=== PATIENT | male | born 1985 | race Caucasian/White ===

== ENCOUNTER 2017-10-02 18:26 | Emergency (ER) | payer BC, OTHER ==
[~2017-10-02] VITALS: Ht 195.6 cm; Wt 108.9 kg
--- OUTSIDE RECORDS SUMMARY | 2017-10-02 18:33 | XMS REPORT | Continuity of Care Document ---
Author Author [facility] Organization [facility] Address Unknown Phone Unavailable Allergies There is no data. Medications There is no data. Problems There is no data. Procedures There is no data. Results There is no data. Encounters ACCT No. Visit Date/Time Discharge Status Pt. Type Provider Facility Loc./Unit Complaint [id number] 08/17/2015 18:10:00 08/17/2015 19:35:00 DIS Emergency HANNA FALLON DO [facility] ER
[2017-10-02] MEDS ORDERED: LIDOCAINE 2% VISCOUS 15 ML UDC MM ONE (19:15)
--- NOTE | 2017-10-02 19:20 | ED GI ---
General Chief Complaint: Rect Problems Stated Complaint: HEMMORROID Nursing Triage Note: PT REPORTS HEMORROIDS STARTING ON MONDAY AND WORSENING THROUGHOUT THE WEEKEND. UNABLE TO GET IN TO DOCTOR TODAY AND UNABLE TO SIT, LAY COMFORTABLY. PT HAS HAD HISTORY OF HEMORROIDS WITH INTERVENTION. PT USED PROCTOFOAM AND LIDOCAINE WITH NO IMPROVEMENT. Sepsis Screen: No Definite Risk Source of Information: Patient Exam Limitations: No Limitations History of Present Illness Time Seen By Provider: 19:03 Initial Comments Patient presents with a 1-1/2 day history of pain at the rectum. He says a year ago he had a large hemorrhoid had to be removed in the ER. He tried ignoring it but couldn't sleep any last night so he decided to come in [facility]. 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 He does not have any problems with constipation or diarrhea or history of irritable bowel syndrome. He is not sure if his last hemorrhoid was internal or external. He is not noticing any bleeding but hasn't the past had some blood on wiping. Never had a colonoscopy. Allergies and Home Medications Allergies Coded Allergies: No Known Drug Allergies (Unverified , 10/02/17) Home Medications Hydrocortisone/Pramoxine 30 Gm Cream.appl, 1 APPLIC RC QID PRN for PAIN- MODERATE TO SEVERE, #1 Ref 0 Prescribed by: CHRISTINE CASAREZ on 10/02/171940 Review of Systems Constitutional: No chills, No fever, No malaise EENTM: No Blurred Vision, No Double Vision, No Eye Pain Respiratory: Denies Cough, Denies Shortness of Air Gastrointestinal: Denies Abdomen Distended, Denies Abdominal Pain, Denies Constipated, Denies Diarrhea, Denies Nausea, Denies Vomiting Genitourinary: Denies Burning, Denies Discharge Past Dqcfiac-Zkldpo-Iyxvcx Hx Patient Social History Alcohol Use: Denies Use Recreational Drug Use: No Smoking Status: Never a Smoker Recent Foreign Travel: No Contact w/Someone Who Travel: No Recent Infectious Disease Expo: No Physical Abuse: No Sexual Abuse: No Mistreated: No Fear: No Psychosocial Suicide Risk Score: 1 Physical Exam Vital Signs VS - Last 72 Hours, by Label 10/02/17 10/02/17 19:05 19:47 Pulse 89 89 Resp 18 18 B/P (MAP) 122/99 (107) Pulse Ox 98 98 O2 Delivery Room Air Room Air Capillary Refill : Less Than 3 Seconds General Appearance: WD/WN, no apparent distress HEENT: PERRL/EOMI, pharynx normal Neck: non-tender, full range of motion Respiratory: chest non-tender, lungs clear, normal breath sounds Cardiovascular: normal peripheral pulses, regular rate, rhythm Peripheral Pulses: 2+ Radial Pulses (R), 2+ Radial Pulses (L) Gastrointestinal: normal bowel sounds, non tender, soft Rectal: mass, tenderness, other (2 half by 3 cm round smooth pearlescent hemorrhoid on the 3:00 position with a smaller 1 cm hemorrhoid at 12:00 position that is erythematous and very tender and friable. Appears to be probably external but maybe a grade for internal prolapsed hemorrhoid. Not easily reduced.) Extremities: normal inspection, no calf tenderness, normal capillary refill Progress/Results/Core Measures Results/Orders My Orders Orders - CHRISTINE CASAREZ Lidocaine 2% Viscous 15 Ml (Xylocaine Vi (10/02/17 19:15) Vital Signs/I&O Vital Sign - Last 12Hours 10/02/17 10/02/17 19:05 19:47 Pulse 89 89 Resp 18 18 B/P (MAP) 122/99 (107) Pulse Ox 98 98 O2 Delivery Room Air Room Air Blood Pressure Mean: 107 Progress Note : Time: 19:38 Progress Note General surgery did a bedside incision and drainage and packing of the external hemorrhoid. The 12:00 thrombosed hemorrhoid is reproducible internal and no clot evacuated at this time. He recommends Analpram. Consults Consults : Consulting Physician: GIO THOMAS DO Consults Notes Called discussed the case and he says he will come and get some surgical kit And a scalpel available. Departure Impression Impression: Primary Impression: Hemorrhoids Qualified Codes: K64.3 - Fourth degree hemorrhoids Disposition: 01 HOME, SELF-CARE Condition: Improved Departure-Patient Inst. Decision time for Depature: 19:38 Referrals: CELINA ZELAYA MD (PCP/Family) Primary Care Physician Patient Instructions: Hemorrhoids (DC) Add. Discharge Instructions: Increase your dietary fiber. Use the Proctofoam and other iewy-xek-whpzqrb creams as necessary for the pain. You may also use sitz baths where you run some tepid water about 2 inches in the bathtub and NSAID in it and allow that to help with the pain. Tylenol 1000 mg every 8 hours and ibuprofen 800 mg every 8 hours is also reasonable. Use stool softener such as Colace or laxatives such as MiraLAX to try and prevent straining with stools in the future. Obtained the prescription for Analpram and apply a small amount rectally 4 times a day as needed for pain relief and to help shrink the external and internal hemorrhoids. Follow up Monday in 2 days with the general surgeon in his office. You may call ahead of time Dr. Thomas at [phone] if you need a specific appointment time. All discharge instructions reviewed with patient and/or family. Voiced understanding. Scripts Hydrocortisone/Pramoxine (Analpram Hc 2.5% Cream) 30 Gm Cream.appl 1 APPLIC RC QID Y for PAIN-MODERATE TO SEVERE, #1 EACH 0 Refills Prov: CHRISTINE CASAREZ 10/02/17 Copy Copies To 1: CELINA ZELAYA MD Copies To 2: GIO THOMAS DO CHRISTINE CASAREZ Oct 02, 2017 19:20
[2017-10-02] MEDS ORDERED: HC A30CR RC (19:41)
[2017-10-02 19:47] VITALS: BP 122/99
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
== END 2017-10-02 19:48 | disposition home or self-care (01) ==
LOC: EDUNIT# 18:26 → ER 18:30
DX: K64.4 Residual hemorrhoidal skin tags (principal); K64.8 Other hemorrhoids
CPT/HCPCS: 99282

== ENCOUNTER 2019-07-23 19:44 | Emergency (ER) | payer SELFPAY ==
[~2019-07-23] VITALS: Ht 190.5 cm; Wt 86.1 kg
[~2019-07-23 19:44] MED LIST: HC A30CR RC
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
--- NOTE | 2019-07-23 20:26 | Diagnostic Imaging Report ---
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 Exam: X-ray of the right hand, AP lateral views. Comparison: None. Findings and impression: 1: There is an oblique spiral-type fracture involving the proximal diaphysis extending all the way to the distal epiphysis of the 4th proximal phalanx. It is difficult to determine if the fracture extends into the articular surface. There is mild adjacent soft tissue swelling. 2: The remainder of the right hand shows no other significant abnormality. Dictated by: Dictated on workstation # [id number]
[2019-07-23 21:30] VITALS: BP 120/91
== END 2019-07-23 21:30 | disposition home or self-care (01) ==
LOC: EDUNIT# 19:44 → ER 19:45
DX: S62.614A Displaced fracture of proximal phalanx of right ring finger, initial encounter for closed fracture (principal); Z90.89 Acquired absence of other organs; X50.1XXA Overexertion from prolonged static or awkward postures, initial encounter
CPT/HCPCS: 26755; 29130; 73120